=== PATIENT | female | born 1980 | race Caucasian/White ===

== ENCOUNTER 2016-05-26 12:29 | Emergency (ER) | payer SELFPAY ==
[~2016-05-26 12:29] MED LIST: DOXY100T20 PO; HYDR-762 PO; IBUP800T25 PO
== END 2016-05-26 13:13 | disposition left against medical advice (07) ==
LOC: E/R 12:29
DX: Z53.21 Procedure and treatment not carried out due to patient leaving prior to being seen by health care provider (principal)